=== PATIENT | male | born 1975 | race African-American/Black ===

== ENCOUNTER 2017-12-09 04:13 | Emergency (ER) | payer OTHER ==
[~2017-12-09] VITALS: Ht 180.3 cm; Wt 81.7 kg
--- NOTE | ~2017-12-09 | EKG ---
[address] [place] [address] ELECTROCARDIOGRAM REPORT Name: LIAN LOU Room #: [facility] Archer#: [id number] Admission: 12/09/17 Attend Phys: Discharge: 12/09/17 Date of : 71 Report #: [id number] THIS REPORT FOR: //name// [facility] ED Test Date: 2017-12-09 Test Time: 04:37:15 Pat Name: LIAN LOU Department: Room: Gender: Foreign Legal Consultant: daiana hurt : 1975 Requested By: Serenity Goldsmith Order Number: [id number] MD: Jean Desai Measurements Intervals [place] Rate: 56 P: 71 [place]: 136 QRS: -3 QRSD: 115 T: 14 QT: 420 QTc: 406 Interpretive Statements Sinus bradycardia Otherwise no significant abnormality No previous ECG available for comparison Electronically Signed On 12-11-2017 8:23:46 CDT by Jean Desai [email or web address] <ELECTRONICALLY SIGNED> By: Jean Desai MD, [facility] 12/11/17 0823 [id number] [id number] Jean Desai MD, FACC /EPI
[2017-12-09 05:00] LABS: ABSOLUTE NEUTROPHILS 2.3 thou/uL (1.4-8.2); BASOPHILS 0.7 % (0.0-2.0); EOSINOPHILS 1.9 % (0.0-3.0); HEMATOCRIT 35.3 % (42.0-52.0); HEMOGLOBIN 11.9 gm/dL (14.0-18.0); LYMPHOCYTES 46.7 % (24.0-44.0); MCH 29.5 pg (26.0-34.0); MCHC 33.6 g/dL (28.0-37.0); MCV 87.8 fL (80.0-100.0); MONOCYTES 8.5 % (1.0-8.0); PLATELET COUNT 182 thou/uL (150-400); POLYS 42.2 % (36.0-66.0); RBC 4.02 mil/uL (4.50-6.00); RDW 13.3 % (10.5-14.5); WBC 5.4 thou/uL (4.0-11.0)
[2017-12-09] MEDS ORDERED: PREDNISONE 20 M20 MG PO (05:15)
[2017-12-09 05:19] LABS: CALCIUM 8.6 mg/dL (8.5-10.1); CREATININE 1.1 mg/dL (0.7-1.3); POTASSIUM 3.7 mmol/L (3.5-5.1)
[2017-12-09 05:27] LABS: TROPONIN-I 0.06 ng/mL (<0.06)
[2017-12-09 05:55] VITALS: BP 112/71
== END 2017-12-09 05:56 | disposition home or self-care (01) ==
LOC: ER 04:13
PROVIDERS: Emergency Medicine
DX: G62.9 Polyneuropathy, unspecified (principal); K64.9 Unspecified hemorrhoids